=== PATIENT | female | born 1980 | race Hispanic/Latino ===

== ENCOUNTER 2018-11-02 15:12 | Inpatient (IN) | payer BC, OTHER ==
[~2018-11-02] VITALS: Ht 157.5 cm; Wt 82.5 kg
[2018-11-02 15:33] LABS: APPEARANCE,URINE Clear (CLEAR); BILIRUBIN,URINE Negative (NEGATIVE); COLOR,URINE Yellow (YELLOW); GLUCOSE, URINE (UA) Negative (NEGATIVE); KETONES,URINE Trace mg/dL (NEGATIVE); LEUKOCYTE ESTERASE ,URINE Trace (NEGATIVE); NITRATE,URINE Negative (NEGATIVE); OCCULT BLOOD,URINE Negative (NEGATIVE); PROTEIN,URINE Negative (NEGATIVE)
[2018-11-02 15:44] LABS: HCG,QUAL RESULT NEGATIVE (NEGATIVE)
[2018-11-02 15:48] LABS: BACTERIA,URINE Rare /HPF (None Seen); RBC,URINE 0-1 /HPF (0-1); SQUAMOUS EPITHELIAL CELL,UR Few /HPF (0-2)
[2018-11-02] MEDS ORDERED: ONDANSETRON HCL 4 MG/2 ML VIAL ONE ×2 (16:18→23:14)
[2018-11-02] MEDS ORDERED: SODIUM CHLORIDE 0.9% 1000ML 1,000 ML IV ONE (16:18)
[2018-11-02] MEDS ORDERED: MORPHINE SULFATE 4 MG/1ML SYG ONE ×2 (16:30→23:14)
[2018-11-02 16:53] LABS: BASOPHILS % (AUTO) 0.4 % (0.0-5.0); EOSINOPHILS % (AUTO) 1.1 % (0.0-8.0); HEMATOCRIT 29.1 % (36-48); LYMPHOCYTES % (AUTO) 16.6 % (21.0-51.0); MEAN CORPUSCULAR HEMOGLOBIN 19.9 pg (27.0-33.0); MEAN CORPUSCULAR HGB CONC 30.4 g/dL (32.0-36.0); MEAN CORPUSCULAR VOLUME 65.3 fL (79-99); MONOCYTES % (AUTO) 5.6 % (3.0-13.0); NEUTROPHILS % (AUTO) 76.3 % (40.0-77.0); NUCLEATED RED BLOOD CELLS 0.1 % (0.0-0.19); PLATELET COUNT (AUTO) 336 K/uL (130-400); RED BLOOD CELL COUNT(AUTO) 4.45 MIL/uL (4.00-5.50); RED CELL DISTRIBUTION WIDTH 19.9 % (11.0-15.5); WHITE BLOOD COUNT (AUTO) 13.8 K/uL (4.8-10.8)
[2018-11-02 17:11] LABS: CREATININE 0.6 mg/dL (0.5-1.5); POTASSIUM 3.6 mmol/L (3.5-5.1)
[2018-11-02 17:19] LABS: ALBUMIN 3.5 g/dL (3.5-5.0); BILIRUBIN,TOTAL 0.5 mg/dL (0.2-1.0); TOTAL PROTEIN, SERUM 7.9 g/dL (6.0-8.3)
[2018-11-02] MEDS ORDERED: IOHEXOL-350 75 ML VIAL IV ONE (17:39)
[2018-11-02] MEDS ORDERED: ZOSYN 3.375GM+NS 50ML 50 ML IV ONE (19:50)
[2018-11-03] VITALS (27 sets, daily range): BP systolic 108–151; BP diastolic 61–92
--- NOTE | 2018-11-03 00:20 | NUR ---
ADMIT PT ARRIVES TO THE FLOOR, ADMITTED TO ROOM 314. PT IS AAOX3. DENIES ANY ABDOMINAL PAINS AT THIS TIME UNLESS WALKING AND MOVING ABOUT. ADMISSION CARE DONE. PT INSTRUCTED TO BE NPO FOR SX IN AM. PCP IN AND V/S MONITORED, STABLE. PLACED PT TO SHOWER IN PREP FOR SX.
[2018-11-03] MEDS ORDERED: LACTATED RINGERS 1000ML 1,000 ML IV ONE (00:29)
--- NOTE | 2018-11-03 01:00 | NUR ---
IVF PT IS BACK IN BED. STARTED ON IVF ON LR REGULATED AT 125CC/HR. ADMISSION DATA BASE COMPLETED. CONSENT FOR SX SIGNED BY PT WITNESSED BY NEON SIGN INSTALLER. PLACED IN CHART.EPISODE OF EMESIS. INFORMED PT THAT ANTI-EMETIC IS NOT YET DUE. RE-ITERATED NPO STATUS AND FALL PRECAUTIONS. WILL RE-ASSESS PT.
[2018-11-03] MEDS ORDERED: LACTATED RINGERS 1000ML 1,000 ML IV SCH (02:00)
[2018-11-03] MEDS ORDERED: MORPHINE SULFATE 4 MG/1ML SYG IVP PRN (02:00)
[2018-11-03] MEDS ORDERED: ONDANSETRON HCL 4 MG/2 ML VIAL IVP PRN ×2 (02:00→07:15)
--- NOTE | 2018-11-03 05:00 | NUR ---
MEDS PT ALREADY AWAKE. NO COMPLAINTS VERBALIZED AT THIS TIME. NO DISTRESS NOTED. IV ZOSYN HUNG. KEPT NPO. KEPT RESTED AND COMFORTABLE.
[2018-11-03] MEDS: ZOSYN 3.375GM+NS 50ML 50 ML IV SCH ×3 (05:02→22:52)
--- NOTE | 2018-11-03 06:00 | NUR ---
SURGERY PT WAS TAKEN DOWN TO HOLDING BY SX STAFF.
[2018-11-03] MEDS ORDERED: BUPIVACAINE/PF 0.5% 30ML VIAL ONE (06:26)
[2018-11-03] MEDS ORDERED: MIDAZOLAM HCL 1 MG/ML 2ML VIAL ONE (06:47)
[2018-11-03] MEDS ORDERED: PROPOFOL 10 MG/ML 20ML VIAL IV ONE (06:47)
[2018-11-03] MEDS ORDERED: LIDOCAINE PF 2% 5ML ABBOJECT ONE (06:47)
[2018-11-03] MEDS ORDERED: FENTANYL CITRATE PF 50 MCG/1 ML 2ML VIAL ONE (06:47)
[2018-11-03] MEDS ORDERED: SUCCINYLCHOLINE 200MG/10ML SYR ONE (06:47)
[2018-11-03] MEDS ORDERED: ROCURONIUM 10MG/1ML SYR 10 MG/ML ML ONE (06:47)
[2018-11-03] MEDS ORDERED: ACETAMINOPHEN-CODEINE 300/30MG TAB PO PRN (07:15)
[2018-11-03] MEDS ORDERED: GLYCOPYRROLATE 1 MG/5 ML SYRINGE ONE (07:46)
[2018-11-03] MEDS ORDERED: NEOSTIGMINE 5MG/5ML SYR IV ONE (07:46)
[2018-11-03] MEDS ORDERED: MEPERIDINE-PF 25 MG/ML SYG ONE ×2 (08:21→08:32)
--- NOTE | 2018-11-03 09:00 | NUR ---
POSTOP ASSESSMENT: RECEIVED FROM PACU VIA BED TO 314. CALL PAPPAS AT HER SIDE.POST OP LAPAROSCOPIC APPY. DROWSY, EXPLAINED POC AND UNDERSTANDING VERBALIZED, X3 BAND-AIDS TO ABD D&I. IV OF LR INF WELL TO LFA AT 125MLS AN HR. IV SITE HEALTHY. DENIES NEED TO VOID, BLADDER NON-DISTENDED. FAMILY IN THE ROOM.
--- NOTE | 2018-11-03 09:30 | NUR ---
IV:LR [id number] HR
[2018-11-03] MEDS ORDERED: LOSA1TAB42 PO (10:29)
--- NOTE | 2018-11-03 10:31 | NUR ---
HYDRATION: MAYURI LQDS WELL
[2018-11-03] MEDS: LACTATED RINGERS 1000ML 1,000 ML IV SCH ×2 (12:31→22:52)
--- NOTE | 2018-11-03 12:45 | NUR ---
ELIMINATION: AMB TO BR, STEADY GAIT, VOIDED 100MLS DK YELLOW URINE. INSTRUCTED ON FIDELIA CARE AND RETURNED DEMONSTRATION.
--- NOTE | 2018-11-03 12:49 | NUR ---
REST: RESTING IN BED, COMFORTABLE.
--- NOTE | 2018-11-03 14:00 | NUR ---
DCP CM met with pt discussed dc plans. Pt is independent prior to admission, lives at home with spouse. Denies any equipments/services. Pt feels safe to go back home, still works and drives, spouse able to assist with transportation and needs as necessary. DC plan to home once stable. CM to cont to follow up. Addendum: 11/03/18 at 1401 by TERRY KERN LVN CM Amended: Links added.
--- NOTE | 2018-11-03 17:00 | NUR ---
ASSESSMENT: Elis WOODARD'S PA HERE AND ASSESSED PT, DISCUSSED POC AND ORDERS RECEIVED. PT VERBALIZES UNDERSTANDING.
--- NOTE | 2018-11-03 17:23 | NUR ---
ACTIVITY: AMB IN HALLWAY.
[2018-11-04] VITALS: BP 141/83
[2018-11-04 04:00] VITALS: BP 150/74
[2018-11-04] MEDS: ZOSYN 3.375GM+NS 50ML 50 ML IV SCH ×2 (04:40→13:00)
[2018-11-04 05:19] LABS: HEMATOCRIT 26.6 % (36-48); MEAN CORPUSCULAR HEMOGLOBIN 19.9 pg (27.0-33.0); MEAN CORPUSCULAR HGB CONC 30.2 g/dL (32.0-36.0); MEAN CORPUSCULAR VOLUME 65.9 fL (79-99); NUCLEATED RED BLOOD CELLS 0.1 % (0.0-0.19); PLATELET COUNT (AUTO) 288 K/uL (130-400); RED BLOOD CELL COUNT(AUTO) 4.04 MIL/uL (4.00-5.50); RED CELL DISTRIBUTION WIDTH 19.8 % (11.0-15.5); WHITE BLOOD COUNT (AUTO) 8.6 K/uL (4.8-10.8)
[2018-11-04 07:00] VITALS: BP 172/77
[2018-11-04] MEDS: LACTATED RINGERS 1000ML 1,000 ML IV SCH (09:55)
[2018-11-04 11:00] VITALS: BP 140/71
== END 2018-11-04 17:23 | disposition home or self-care (01) | DRG 343 ==
LOC: EDH 15:12 → EDHIP 15:13 → 3CH 23:50
PROVIDERS: ADMIT Surgery; ATTEND Surgery
PROC: 0DTJ4ZZ Resection of Appendix, Percutaneous Endoscopic Approach (ICD-10-PCS; principal; 2018-11-03 07:31)
DX: K35.80 Unspecified acute appendicitis (principal)
CPT/HCPCS: 36415; 74177; 80053; 81001; 81025; 83690; 85025; 85027; 88304; G0378; J0330; J2001; J2175; J2250; J2270; J2405; J2543; J2704; J2710; J3010; J3490; J7030; J7120; Q9967